=== PATIENT | female | born 1945 | race Two or more races ===

== ENCOUNTER 2018-09-06 13:15 | Outpatient (CLI) | payer OTHER | END 2018-09-06 13:31 | disposition home or self-care (01) | LOC: RX STUDY 13:15 | DX: N39.0 Urinary tract infection, site not specified (principal) | CPT/HCPCS: 51600; 74430; Q9958 ==

== ENCOUNTER 2024-04-24 10:50 | Outpatient (CLI) | payer OTHER | END 2024-04-24 11:06 | disposition home or self-care (01) | LOC: MRI 10:50 | PROVIDERS: ATTEND Orthopaedic Surgery | DX: M25.561 Pain in right knee (principal); M25.562 Pain in left knee | CPT/HCPCS: 73718 ==